=== PATIENT | female | born 1995 | race Caucasian/White ===

== ENCOUNTER 2019-08-29 12:59 | Outpatient (CLI) | payer OTHER, SELFPAY ==
--- NOTE | ~2019-08-29 | US_ITS ---
EXAMINATION: US pelvic complete w TV DATE: 08/29/2019 14:20 INDICATION: Follow-up ovarian cyst Comparison:No prior studies for comparison. TECHNIQUE: Multiple transabdominal and endovaginal sonographic images of the pelvis performed. FINDINGS: The uterus measures 7.2 x 2.9 x 3.6 cm. The endometrial complex measures 5 mm. The right ovary measures 2.9 x 2.1 x 2.5 cm and the left ovary measures 2.7 x 2 x 2.3 cm. There are small follicles in each ovary. There is no free fluid in the pelvis. There are no abnormal masses seen on either side. IMPRESSION: 1. Normal pelvic ultrasound Reviewed, dictated and finalized at location A. IMPRESSION: 1. Normal pelvic ultrasound
== END 2019-08-29 13:00 | disposition home or self-care (01) ==
PROVIDERS: PCP Internal Medicine; Visit Provider Internal Medicine
DX: N83.209 Unspecified ovarian cyst, unspecified side (principal)
CPT/HCPCS: 76830; 76856